=== PATIENT | male | born 1995 | race Caucasian/White ===

== ENCOUNTER 2020-02-07 12:58 | Outpatient (REF) | payer MEDICAID, SELFPAY | END 2020-02-07 12:59 | disposition home or self-care (01) | LOC: HO.LAB 12:58 | PROVIDERS: Visit Provider Internal Medicine | DX: Z20.828 Contact with and (suspected) exposure to other viral communicable diseases (principal) | CPT/HCPCS: 87635 ==

== ENCOUNTER 2020-02-14 16:23 | Outpatient (REF) | payer MEDICAID, SELFPAY | END 2020-02-14 16:24 | disposition home or self-care (01) | LOC: HO.LAB 16:23 | PROVIDERS: Visit Provider Internal Medicine | DX: Z20.828 Contact with and (suspected) exposure to other viral communicable diseases (principal) | CPT/HCPCS: U0003 ==

== ENCOUNTER 2020-05-17 14:10 | Outpatient (REF) | payer MEDICAID, SELFPAY | END 2020-05-17 14:11 | disposition home or self-care (01) | LOC: HO.LAB 14:10 | PROVIDERS: Visit Provider Internal Medicine | DX: Z20.822 Contact with and (suspected) exposure to COVID-19 (principal) | CPT/HCPCS: 36415; C9803; U0003; U0005 ==

== ENCOUNTER 2020-05-31 12:54 | Outpatient (REF) | payer MEDICAID, SELFPAY | END 2020-05-31 12:55 | disposition home or self-care (01) | LOC: HO.LAB 12:54 | PROVIDERS: Visit Provider Internal Medicine | DX: Z20.822 Contact with and (suspected) exposure to COVID-19 (principal) | CPT/HCPCS: 36415; C9803; U0003; U0005 ==

== ENCOUNTER 2020-08-26 10:19 | Emergency (ER) | payer MEDICAID, SELFPAY ==
--- NOTE | ~2020-08-26 | CT_ITS ---
EXAMINATION: CT FACIAL BONES WITH CONTRAST CLINICAL INFORMATION: Right-sided periorbital cellulitis. COMPARISON: None TECHNIQUE: CT scan of the facial bones with intravenous contrast was performed using helical CT scanner. Images were reconstructed in axial and coronal plane. 85 mL of Omnipaque 350 was intravenously injected without complications. This CT examination was performed using dose optimization techniques as appropriate, variously including the following: *Automated exposure control *Adjustment of mA and/or kV according to patient size (this includes techniques or standardized protocols for targeted exams where dose is matched to indication/reason for exam; i.e. extremities or head) *Use of iterative reconstruction technique DLP: 641.2 mGy-cm FINDINGS: Concordant with clinical findings, there is indeed soft tissue thickening and enhancement noted in the preseptal part of the right orbit with normal appearance of the intraconal fat. Soft tissue swelling and thickening is inferiorly extending to the region of the superior most part of the ipsilateral cheek. The adjacent paranasal sinuses shows minimal mucoperiosteal thickening of both maxillary sinuses, otherwise appear clear. No air-fluid levels are seen. The lamina papyracea are intact. The ethmoid roofs are symmetric. No maxillary periapical disease is seen. The mastoid air cells and visualized middle ear cavities are well-aerated. The orbits are normal. The TMJs are unremarkable. The imaged portions of the brain demonstrate no acute abnormality. CT/CT facial bones w con IMPRESSION: Abnormal contrast enhanced CT scan of the facial bones showing evidence of right-sided preseptal cellulitis. No CT evidence of any intraorbital/intraconal disease extension, and minimal mucoperiosteal thickening of the maxillary sinuses, and no evidence of any disease within the visualized part of the brain parenchyma.
[2020-08-26 10:23] VITALS: BP 129/63; PULSE 93; RESP 18; TEMP 37.2; O2SAT 97; BMI 38.0
--- NOTE | 2020-08-26 10:29 | ED_ITS ---
HPI - Eye Problem General Chief complaint: Eye Problems Stated complaint: R EYE SWOLLEN Time Seen by Provider: 08/26/20 10:28 Source: patient Mode of arrival: ambulatory Limitations: no limitations History of Present Illness HPI Narrative: 24 y/o male presenting with right eyelid pain and swelling for the last 2 days. He states it started with a small pustule below right right eyebrow near his nose that he popped and then he woke up the next day with increased swelling and redness of his right upper eyelid. It is warm and tender. He has no vision changes or headaches. No fevers at home. No pain with eye movement. he is not diabetic. MD chief complaint: eye pain Onset (ago): day(s) (2) Onset description: gradual Duration: constant Location: right eye Eye Symptoms: redness and pain Place: home Mechanism: none Severity: moderate If Pain, Quality: aching Associated symptoms: none Related Data Patient tetanus UTD: Yes Previous Rx's Medication Instructions Recorded amoxicillin-pot clavulanate 1 tab PO BID #20 tab 08/26/20 [Augmentin] sulfamethoxazole-trimethoprim 1 tab PO BID #14 tab 08/26/20 [Bactrim DS] Allergies Allergy/AdvReac Type Severity Reaction Status Date / Time No Known Allergies Allergy Verified 08/26/20 10:27 Review of Systems Review of Systems: Constitutional: No Fever, No Chills ENT/Mouth: No sore throat, No Rhinorrhea, No Swallowing Difficulty Eyes: + Eye Pain, + Swelling, + Redness Cardiovascular: No Chest Pain, No SOB Respiratory: No Cough Gastrointestinal: No Nausea, No Vomiting Skin: No Skin Lesions, No rash Neuro: , No Dizziness, No Headache Heme/Lymph: No Lymphadenopathy PMFSH Past Medical History Attestation statement: The following information was validated with the patient. Medical History (Updated 08/26/20 @ 14:[address]) Asthma Social History Social History Advance Directives: No Advance Directives Information Provided: No Physical Exam Vital Signs: Vital Signs: Last Vital Signs Temp 99.0 F 08/26/20 10:23 Pulse 93 08/26/20 10:23 Resp 18 08/26/20 14:07 BP 129/63 08/26/20 10:23 Pulse Ox 97 08/26/20 10:23 Body Mass Index 38.0 Appearance: Alert. Oriented X3. No acute distress. Eyes: right eyelid with significant edema, mild erythema and warmth, tender to touch. EOMI without pain on movement. VA normal. PERRLA. No scleral or conjunctival injection. small healing pustule on the superior medial aspect of nasal bridge. ENT: Pharynx normal. Neck: Normal inspection. Neck supple. CVS: Normal heart rate and rhythm. Pulses normal. Respiratory: No respiratory distress. Breath sounds normal. Skin: Skin warm and dry. Normal skin color. Normal skin turgor. No rashes. Extremities: No lower extremity edema. Neuro: Oriented X 3. No motor deficit. No sensory deficit. CN II-XII Course Course Course Narrative: 24 y/o male presenting with right eyelid pain, swelling and warmth. Concerning for preseptal vs periorbital cellulitis. Bam get lab workup and CT scan for further evaluation. Reevaluation(s) Reevaluation #1: WBC 10.9. No fever. CT scan showing evidence of preseptal cellulitis and not a deeper infection. Will plan to start on double doverage ABX and d/c home with outpatient follow up. He was given strict instructions to return if his symptoms worsen. Expressed understanding, stable for d/c. MDM - Eye Problem Lab Data Result diagrams: 08/26/20 10:59 08/26/20 10:59 Labs: Lab Results 08/26/20 08/26/20 08/26/20 Range/Units 10:59 10:59 10:59 WBC 10.9 H (4.8-10.8) X10*3/uL RBC 5.42 (4.60-5.80) X10*6/uL Hgb 13.5 L (14.0-18.0) g/dl Hct 43.6 (42-52) % MCV 80.4 (80-98) fL MCH 24.9 L (27.0-33.0) pg MCHC 31.0 (31.0-36.0) g/dl RDW 15.1 (11.0-16.0) % Plt Count 230 (160-400) X10*3/uL MPV 10.3 (9.4-12.4) fL Immature Gran % (Auto) 0.4 (0.0-0.4) % Neut % (Auto) 70.1 (45-73) % Lymph % (Auto) 19.2 L (20-40) % [place] % (Auto) 9.2 (2-11) % Eos % (Auto) 0.8 (0-4) % Baso % (Auto) 0.3 (0-2) % Lymph # (Auto) 2.1 (1.2-4.9) X10*3/uL [place] # (Auto) 1.0 (0.1-1.2) X10*3/uL Eos # (Auto) 0.1 (0.0-0.4) X10*3/uL Baso # (Auto) 0.0 (0.0-0.2) X10*3/uL Abs Immat Gran (auto) 0.04 H (0.00-0.03) X10*3/uL Absolute Neuts (auto) 7.7 (2.0-8.3) X10*3/uL Absolute Nucleated RBC 0.000 (0.0-0.012) X10*3/uL Nucleated RBC % (auto) 0.0 (0.0-0.2) /100WBC Hold Blue Top SEE NOTE Sodium 136 (135-145) mmol/L Potassium 4.1 (3.3-5.1) mmol/L Chloride 106 (96-108) mmol/L Carbon Dioxide 24 (22-29) mmol/L Anion Gap 10 L (12-20) BUN 13 (9-16) mg/dL Creatinine 0.86 (0.5-1.4) mg/dL Estim Creat Clear Calc 173.6 Estimated GFR > 60 Random Glucose 88 (60-115) mg/dL Lactic Acid (0.5-2.0) mmol/L Calcium 9.3 (8.4-10.2) mg/dL 08/26/20 Range/Units 10:59 WBC (4.8-10.8) X10*3/uL RBC (4.60-5.80) X10*6/uL Hgb (14.0-18.0) g/dl Hct (42-52) % MCV (80-98) fL MCH (27.0-33.0) pg MCHC (31.0-36.0) g/dl RDW (11.0-16.0) % Plt Count (160-400) X10*3/uL MPV (9.4-12.4) fL Immature Gran % (Auto) (0.0-0.4) % Neut % (Auto) (45-73) % Lymph % (Auto) (20-40) % [place] % (Auto) (2-11) % Eos % (Auto) (0-4) % Baso % (Auto) (0-2) % Lymph # (Auto) (1.2-4.9) X10*3/uL [place] # (Auto) (0.1-1.2) X10*3/uL Eos # (Auto) (0.0-0.4) X10*3/uL Baso # (Auto) (0.0-0.2) X10*3/uL Abs Immat Gran (auto) (0.00-0.03) X10*3/uL Absolute Neuts (auto) (2.0-8.3) X10*3/uL Absolute Nucleated RBC (0.0-0.012) X10*3/uL Nucleated RBC % (auto) (0.0-0.2) /100WBC Hold Blue Top Sodium (135-145) mmol/L Potassium (3.3-5.1) mmol/L Chloride (96-108) mmol/L Carbon Dioxide (22-29) mmol/L Anion Gap (12-20) BUN (9-16) mg/dL Creatinine (0.5-1.4) mg/dL Estim Creat Clear Calc Estimated GFR Random Glucose (60-115) mg/dL Lactic Acid 0.9 (0.5-2.0) mmol/L Calcium (8.4-10.2) mg/dL Discharge Plan Discharge Clinical Impression: Preseptal cellulitis of right upper eyelid Patient Disposition: Home, Self-Care Instructions: Periorbital Cellulitis in Adults (ED) Additional Instructions: Take the prescribed antibiotics as directed. Use warm compresses to your eye a few times per day. If you have worsening symptoms come back to the ER for further evaluation. Follow up with your doctor next week. Prescriptions: New sulfamethoxazole-trimethoprim [Bactrim DS] 800-160 mg tablet 1 tab PO BID Qty: 14 RF: 0 amoxicillin-pot clavulanate [Augmentin] 875-125 mg tablet 1 tab PO BID Qty: 20 RF: 0 Interventions: ED Discharge Assessment Last Done: 08/26/20 14:09 Discharge Date/Time: 08/26/20 14:10
[2020-08-26 11:16] LABS: MANUAL DIFF FLAG NO
[2020-08-26 11:18] LABS: Basophils Percent Auto 0.3 % (0-2); Eosinophils Absolute Auto 0.1 X10*3/uL (0.0-0.4); Eosinophils Percent Auto 0.8 % (0-4); Hematocrit 43.6 % (42-52); Hemoglobin 13.5 g/dl (14.0-18.0); Imm Gran Abs Auto 0.04 X10*3/uL (0.00-0.03); Imm Gran Pct Auto 0.4 % (0.0-0.4); Lymphocytes Absolute Auto 2.1 X10*3/uL (1.2-4.9); Lymphocytes Percent Auto 19.2 % (20-40); Mean Corpuscular Hemoglobin 24.9 pg (27.0-33.0); Mean Corpuscular Volume 80.4 fL (80-98); Mean Platelet Volume 10.3 fL (9.4-12.4); Monocytes Percent Auto 9.2 % (2-11); Neutrophils Absolute Auto 7.7 X10*3/uL (2.0-8.3); Neutrophils Percent Auto 70.1 % (45-73); Platelet Count 230 X10*3/uL (160-400); Red Blood Count 5.42 X10*6/uL (4.60-5.80); Red Cell Distribution Width 15.1 % (11.0-16.0); White Blood Count 10.9 X10*3/uL (4.8-10.8)
[2020-08-26 11:41] LABS: Lactic Acid 0.9 mmol/L (0.5-2.0)
[2020-08-26 11:45] LABS: Anion Gap 10 (12-20); Blood Urea Nitrogen 13 mg/dL (9-16); Calcium 9.3 mg/dL (8.4-10.2); Carbon Dioxide 24 mmol/L (22-29); Chloride 106 mmol/L (96-108); Creatinine Clr Calc Pharmacy 173.6; Estimated Glomerular Filt Rate > 60; Glucose Random 88 mg/dL (60-115); Potassium 4.1 mmol/L (3.3-5.1); Sodium 136 mmol/L (135-145)
[2020-08-26] MEDS: iohexoL 350 MG/ML 100 ML INFUS..BTL IV (12:06)
[2020-08-26] MEDS: Ibuprofen 600 MG TABLET PO (14:04)
[2020-08-26] MEDS: Amoxicillin/Potassium Clav 875 MG TABLET PO (14:05)
[2020-08-26 14:07] VITALS: RESP 18
== END 2020-08-26 14:10 | disposition home or self-care (01) ==
PROVIDERS: Physician Assistant; Emergency Provider Emergency Medicine Emergency Medical Services; PCP General Practice
DX: H00.031 Abscess of right upper eyelid (principal); H57.11 Ocular pain, right eye
CPT/HCPCS: 36415; 70487; 80048; 83605; 85025; 87040; 99284; Q9967

== ENCOUNTER 2021-01-24 15:04 | Outpatient (REF) | payer MEDICAID, SELFPAY | END 2021-01-24 15:05 | disposition home or self-care (01) | LOC: HO.LAB 15:04 | PROVIDERS: PCP General Practice; Visit Provider Internal Medicine | DX: Z20.822 Contact with and (suspected) exposure to COVID-19 (principal) | CPT/HCPCS: C9803; U0003; U0005 ==